=== PATIENT | female | born 1995 | race Caucasian/White ===

== ENCOUNTER 2019-11-30 16:52 | Emergency (ER) | payer OTHER ==
[~2019-11-30] VITALS: Ht 152.4 cm; Wt 56.9 kg
[2019-11-30 17:27] VITALS: BP 119/82
--- NOTE | 2019-11-30 17:32 | NUR ---
JONO SINGLETARY AT BEDSIDE TO EVALUATE
== END 2019-11-30 18:21 | disposition home or self-care (01) ==
LOC: ED 17:30
DX: S61.452A Open bite of left hand, initial encounter (principal); W55.01XA Bitten by cat, initial encounter; Y93.89 Activity, other specified; Y92.69 Other specified industrial and construction area as the place of occurrence of the external cause; Y99.8 Other external cause status
CPT/HCPCS: 99281